=== PATIENT | male | born 1970 | race Hispanic/Latino ===

== ENCOUNTER 2018-04-21 15:34 | Emergency (ER) | payer OTHER ==
[2018-04-21] MEDS ORDERED: ONDANSETRON 4 MG/2 ML VIAL ONE (16:13)
[2018-04-21] MEDS ORDERED: MEPERIDINE HCL 50 MG/ML AMP ONE (16:13)
[2018-04-21] MEDS ORDERED: NA CHLORIDE 0.9% 1,000 ML ONE (16:14)
--- NOTE | 2018-04-21 16:21 | RAD REPORT ---
EXAM DESCRIPTION: CT - Stone Protocol - 04/21/2018 4:11 pm CLINICAL HISTORY: Flank pain. COMPARISON: None. TECHNIQUE: Axial images were obtained without oral or IV contrast. Lack of contrast limits solid org an and vascular assessment. The [id number] spans the entirety of the system partially obscuring uppermost abdomen and lung bases. Coronal reformatted images were obtained and reviewed. All CT scans are performed using dose optimization technique as appropriate and may include automated exposure control or mA/KV adjustment according to patient size. FINDINGS: The lower lung winters are clear. Imaged portions of the liver and spleen show no suspicious findings on non-contrast imaging. The panc reas and adrenal glands are normal. No pathologic lymphadenopathy in the abdomen or pelvis. A 2-3 mm calculus is present at the right UVJ resulting in mild right hydronephrosis. Additional bila teral renal stones are present, including a 8 mm stone in the superior right kidney in several stones in the superior left kidney, largest measuring 7 mm. No bowel obstruction, free air, free fluid or abscess. Normal appendix noted. No significant bony abnormality. IMPRESSION: 2-3 mm calculus at the right UVJ resulting in mild right hydronephrosis.
[2018-04-21 16:44] LABS: Absolute Lymphocytes (CBC) 1.3 K/uL (0.7-4.9); Absolute Monocytes 0.5 K/uL (0.1-1.3); Absolute Neutrophil 5.3 K/uL (1.8-8.0); Basophils % 0.7 % (0-1.3); Eosinophils % 1.3 % (0-4.4); Hematocrit 41.7 % (39.6-49.0); Lymphocytes % 17.9 % (15.3-44.8); MCH 28.5 pg (27.0-35.0); MCV 87.4 fL (80-100); MPV 12.2 fL (7.6-11.3); Monocytes % 7.5 % (3.3-12.3); RBC Red Blood Cell Count 4.77 M/uL (4.33-5.43)
[2018-04-21] MEDS ORDERED: TAMSULOSIN 0.4 MG SR CAP ONE (16:47)
[2018-04-21] MEDS ORDERED: KETOROLAC 30 MG/ML INJ ONE (16:47)
[2018-04-21 17:04] LABS: Urine Blood TRACE (NEG); Urine Glucose NEGATIVE (NEG); Urine Protein NEGATIVE (NEG); Urine pH 5.5 (5.0-7.0)
[2018-04-21 17:07] LABS: Potassium 3.9 mEq/L (3.6-5.0)
[2018-04-21 17:10] LABS: Urine Bacteria <20 /HPF (NONE SEEN); Urine Culture Reflex Order NOT NEEDED; Urine RBC <5 /HPF (NONE SEEN)
[2018-04-21 17:13] LABS: Albumin 4.7 g/dL (3.2-5.5); Bilirubin Direct 0.1 mg/dL (0-0.2); Bilirubin Total 0.6 mg/dL (0.3-1.2); Protein, Total 7.8 g/dL (6.0-8.3)
[2018-04-21] MEDS ORDERED: MORPHINE 4 MG/ML SYR ONE (17:44)
--- NOTE | 2018-04-21 18:22 | EDPHYS ---
Physician Documentation [facility] Name: Timbo Lara Jr Age: 47 yrs Sex: Male : 1970 Arrival Date: 04/21/2018 Time: 15:37 Bed 20 Private MD: Shelia Dominguez H ED Physician Luis Carlos Pollard HPI: 04/21 17:06 This 47 yrs old Male presents to ER via Ambulatory with complaints of rn Abdominal Pain. 17:06 The patient complains of pain in the right low back. The pain radiates to the abdomen. rn Onset: The symptoms/episode began/occurred just prior to arrival. Severity of pain: At its worst the pain was moderate in the emergency department the pain is unchanged. The patient has not experienced similar symptoms in the past. The patient has not recently seen a physician. Historical: - Allergies: 15:43 No Known Allergies; aj - Home Meds: 15:43 fenofibric acid oral oral [Active]; aj - PMHx: 15:43 Hyperlipidemia; aj - PSHx: 15:43 None; aj - Immunization history:: Adult Immunizations up to date. - Social history:: Smoking status: Patient/guardian denies using tobacco. - Ebola Screening: : Patient negative for fever greater than or equal to 101.5 degrees Fahrenheit, and additional compatible Ebola Virus Disease symptoms Patient denies exposure to infectious person Patient denies travel to an Ebola-affected area in the 21 days before illness onset. - Family history:: not pertinent. - Hospitalizations: : No recent hospitalization is reported. ROS: 17:06 Constitutional: Negative for fever, chills, and weight loss, Neck: Negative for injury, rn pain, and swelling, Cardiovascular: Negative for chest pain, palpitations, and edema, Respiratory: Negative for shortness of breath, cough, wheezing, and pleuritic chest pain, Abdomen/GI: Negative for vomiting, diarrhea, and constipation, Back: Negative for injury and pain, : Negative for injury, bleeding, discharge, and swelling, MS/Extremity: Negative for injury and deformity, Neuro: Negative for headache, weakness, numbness, tingling, and seizure. Exam: 17:06 Constitutional: This is a well developed, well nourished patient who is awake, alert, rn appears uncomfortable, pacing Abdomen/GI: Soft, non-tender, with normal bowel sounds. No distension or tympany. No guarding or rebound. No evidence of tenderness throughout. Back: No spinal tenderness. No costovertebral tenderness. Full range of motion. MS/ Extremity: Pulses equal, no cyanosis. Neurovascular intact. Full, normal range of motion. Equal circumference. Neuro: Awake and alert, GCS 15, oriented to person, place, time, and situation. Cranial nerves II-XII grossly intact. Motor strength 5/5 in all extremities. Sensory grossly intact. Cerebellar exam normal. Normal gait. Vital Signs: 15:43 BP 163 / 109; Pulse 86; Resp 16; Temp 97.2; Pulse Ox 97% on R/A; Weight 78.02 kg; aj Height 5 ft. 10 in. (177.80 cm); Pain 6/10; 16:30 BP 156 / 86; Pulse 80; Resp 16; Pulse Ox 100% ; hb 17:46 BP 146 / 84; Pulse 80; Resp 17; Pulse Ox 100% ; Pain 8/10; hb 18:16 BP 135 / 84; Pulse 69; Resp 15; Pulse Ox 100% on R/A; Pain 3/10; hb 15:43 Body Mass Index 24.68 (78.02 kg, 177.80 cm) aj MDM: 15:52 Patient medically screened. rn 18:20 Differential diagnosis: nephrolithiasis. 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 Counseling: I had a detailed discussion with the patient and/or guardian regarding: the historical points, exam findings, and any diagnostic results supporting the discharge/admit diagnosis, lab results, radiology results, the need for outpatient follow up, to return to the emergency department if symptoms worsen or persist or if there are any questions or concerns that arise at home. Response to treatment: the patient's symptoms have markedly improved after treatment, and as a result, I will discharge patient. Special discussion: I discussed with the patient/guardian in detail that at this point there is no indication for admission to the hospital. It is understood, however, that if the symptoms persist or worsen the patient needs to return immediately for re-evaluation. Based on the history and exam findings, there is no indication for further emergent testing or inpatient evaluation. I discussed with the patient/guardian the need to see the urologist for further evaluation of the symptoms. 04/21 16:02 Order name: Basic Metabolic Panel; Complete Time: 18:23 rn 04/21 16:02 Order name: CBC with Diff; Complete Time: 16:56 rn 04/21 16:02 Order name: Creatinine for Radiology; Complete Time: 16:56 rn 04/21 16:02 Order name: Hepatic Function; Complete Time: 18:23 rn 04/21 16:02 Order name: Lipase; Complete Time: 18:23 rn 04/21 16:02 Order name: Urine Microscopic Only; Complete Time: 17:48 rn 04/21 16:02 Order name: CT Stone Protocol; Complete Time: 16:39 rn 04/21 17:00 Order name: Urine Dipstick--Ancillary (enter results); Complete Time: 17:48 aa5 04/21 16:02 Order name: IV Saline Lock; Complete Time: 16:36 rn 04/21 16:02 Order name: Labs collected and sent; Complete Time: 16:36 rn 04/21 16:02 Order name: Urine Dipstick-Ancillary (obtain specimen); Complete Time: 16:36 rn Administered Medications: 16:35 Drug: Demerol 50 mg Route: IVP; Site: right antecubital; hb 17:00 Follow up: Response: No adverse reaction; Pain is decreased hb 16:35 Drug: Zofran 4 mg Route: IVP; Site: right antecubital; hb 17:00 Follow up: Response: No adverse reaction hb 16:36 Drug: NS 0.9% 1000 ml Route: IV; Rate: 1000 ml; Site: right antecubital; hb 17:30 Follow up: Response: No adverse reaction; IV Status: Completed infusion hb 16:59 Drug: TORadol 30 mg Route: IVP; Site: right antecubital; hb 17:30 Follow up: Response: No adverse reaction; Pain is decreased hb 17:00 Drug: Flomax 0.4 mg Route: PO; hb 17:30 Follow up: Response: No adverse reaction hb 17:46 Drug: morphine 4 mg Route: IVP; Site: right antecubital; hb 18:12 Follow up: Response: No adverse reaction; Pain is decreased hb Disposition: 04/21/18 18:21 Discharged to Home. Impression: Ureterolithiasis. - Condition is Stable. - Discharge Instructions: Kidney Stones. - Prescriptions for Ibuprofen 800 mg Oral Tablet - take 1 tablet by ORAL route every 8 hours As needed take with food; 30 tablet. Tylenol- Codeine #3 300-30 mg Oral Tablet - take 2 tablet by ORAL route every 6 hours As needed; 20 tablet. Zofran 4 mg Oral Tablet - take 1 tablet by ORAL route every 12 hours As needed; 20 tablet. Flomax 0.4 mg Oral Capsule, Sust. Release 24 hr - take 1 capsule by ORAL route once daily 1/2 hour following the same meal each day; 5 capsule. - Medication Reconciliation Form, Thank You Letter, Antibiotic Education, Prescription Opioid Use form. - Follow up: Ganesh Sheehan; When: As needed; Reason: Recheck today's complaints, Re-evaluation by your physician. - Problem is new. - Symptoms have improved. Signatures: Dispatcher [employer] Rosy Zheng RN RN aj Nieto, Roman, MD MD rn Baxter, Heather, RN RN hb Corrections: (The following items were deleted from the chart) 18:51 18:21 04/21/2018 18:21 Discharged to Home. Impression: Ureterolithiasis. Condition is hb Stable. Discharge Instructions: Kidney Stones. Prescriptions for Ibuprofen 800 mg Oral Tablet - take 1 tablet by ORAL route every 8 hours As needed take with food; 30 tablet, Tylenol-Codeine #3 300-30 mg Oral Tablet - take 2 tablet by ORAL route every 6 hours As needed; 20 tablet, Zofran 4 mg Oral Tablet - take 1 tablet by ORAL route every 12 hours As needed; 20 tablet, Flomax 0.4 mg Oral Capsule, Sust. Release 24 hr - take 1 capsule by ORAL route once daily 1/2 hour following the same meal each day; 5 capsule. and Forms are Medication Reconciliation Form, Thank You Letter, Antibiotic Education, Prescription Opioid Use. Follow up: Ganesh Sheehan; When: As needed; Reason: Recheck today's complaints, Re-evaluation by your physician. Problem is new. Symptoms have improved. rn
--- NOTE | 2018-04-21 18:22 | ER ---
Nurse's Notes [facility] Name: Timbo Lara Jr Age: 47 yrs Sex: Male : 1970 Arrival Date: 04/21/2018 Time: 15:37 Bed 20 Private MD: Shelia Dominguez H Diagnosis: Ureterolithiasis Presentation: 04/21 15:42 Presenting complaint: Patient states: RLQ pain that started suddenly. Reports nausea. aj Pain is worse with sitting. Also reports urinary urgency. Transition of care: patient was not received from another setting of care. Onset of symptoms was April 21, 2018. Care prior to arrival: None. 15:42 Method Of Arrival: Ambulatory aj 15:42 Acuity: DOMINIC 3 aj 16:33 Risk Assessment: Do you want to hurt yourself or someone else? Patient reports no hb desire to harm self or others. Initial Sepsis Screen: Does the patient meet any 2 criteria? No. Patient's initial sepsis screen is negative. Does the patient have a suspected source of infection? No. Patient's initial sepsis screen is negative. Triage Assessment: 15:43 General: Appears in no apparent distress. uncomfortable, Behavior is calm, cooperative, aj appropriate for age. Pain: Complains of pain in right lower quadrant. Neuro: Level of Consciousness is awake, alert, obeys commands, Oriented to person, place, time, situation, Appropriate for age. Respiratory: Airway is patent Respiratory effort is even, unlabored, Respiratory pattern is regular, symmetrical. GI: Abdomen is flat, non-distended, Reports lower abdominal pain. : Reports pain in right lower quadrant(s) urgency. Derm: Skin is intact, is healthy with good turgor, Skin is pink, warm \T\ dry. normal. Historical: - Allergies: 15:43 No Known Allergies; aj - Home Meds: 15:43 fenofibric acid oral oral [Active]; aj - PMHx: 15:43 Hyperlipidemia; aj - PSHx: 15:43 None; aj - Immunization history:: Adult Immunizations up to date. - Social history:: Smoking status: Patient/guardian denies using tobacco. - Ebola Screening: : Patient negative for fever greater than or equal to 101.5 degrees Fahrenheit, and additional compatible Ebola Virus Disease symptoms Patient denies exposure to infectious person Patient denies travel to an Ebola-affected area in the 21 days before illness onset. - Family history:: not pertinent. - Hospitalizations: : No recent hospitalization is reported. Screenin:32 Abuse screen: Denies threats or abuse. Denies injuries from another. Nutritional hb screening: No deficits noted. Tuberculosis screening: No symptoms or risk factors identified. Fall Risk None identified. Assessment: 16:00 General: Appears in no apparent distress. uncomfortable, Behavior is calm, cooperative. hb Pain: Pain currently is 8 out of 10 on a pain scale. Neuro: Level of Consciousness is awake, alert, obeys commands, Oriented to person, place, time, situation. Cardiovascular: Capillary refill < 3 seconds Patient's skin is warm and dry. Respiratory: Airway is patent Trachea midline Respiratory effort is even, unlabored, Respiratory pattern is regular, symmetrical, Breath sounds are clear bilaterally. GI: Abdomen is non-distended, Bowel sounds present X 4 quads. Abd is soft and non tender X 4 quads. Reports RLQ pain. : No signs and/or symptoms were reported regarding the genitourinary system. EENT: No signs and/or symptoms were reported regarding the EENT system. Derm: No signs and/or symptoms reported regarding the dermatologic system. Musculoskeletal: No signs and/or symptoms reported regarding the musculoskeletal system. 17:00 Reassessment: Patient appears in no apparent distress at this time. Patient and/or hb family updated on plan of care and expected duration. Pain level reassessed. Patient is alert, oriented x 3, equal unlabored respirations, skin warm/dry/pink. 17:46 Reassessment: Pt reports RLQ pain 8/10, Dr. Pollard notified at bedside, morphine 4 mg hb IVP administered as ordered. 18:14 Reassessment: Patient appears in no apparent distress at this time. Patient and/or hb family updated on plan of care and expected duration. Pain level reassessed. Patient is alert, oriented x 3, equal unlabored respirations, skin warm/dry/pink. Patient states symptoms have improved. Vital Signs: 15:43 BP 163 / 109; Pulse 86; Resp 16; Temp 97.2; Pulse Ox 97% on R/A; Weight 78.02 kg; aj Height 5 ft. 10 in. (177.80 cm); Pain 6/10; 16:30 BP 156 / 86; Pulse 80; Resp 16; Pulse Ox 100% ; hb 17:46 BP 146 / 84; Pulse 80; Resp 17; Pulse Ox 100% ; Pain 8/10; hb 18:16 BP 135 / 84; Pulse 69; Resp 15; Pulse Ox 100% on R/A; Pain 3/10; hb 15:43 Body Mass Index 24.68 (78.02 kg, 177.80 cm) aj ED Course: 15:37 Patient arrived in ED. sb2 15:37 Shelia Dominguez DO is Private Physician. sb2 15:43 Triage completed. aj 15:43 Arm band placed on right wrist. Patient placed in waiting room, Patient notified of aj wait time. 15:52 Luis Carlos Pollard MD is Attending Physician. rn 16:07 CT completed. Patient tolerated procedure well. Patient moved to CT via wheelchair. sw Patient moved back from CT. 16:10 Claritza Seay, CLAUDIA is Primary Nurse. hb 16:12 CT Stone Protocol In Process Unspecified. EDMS 16:15 Patient has correct armband on for positive identification. Bed in low position. Call hb light in reach. Side rails up X 1. 16:15 Inserted saline lock: 20 gauge in right antecubital area, using aseptic technique. hb Blood collected. 18:21 Ganesh Sheehan MD is Referral Physician. rn 18:30 No provider procedures requiring assistance completed. IV discontinued, intact, hb bleeding controlled, No redness/swelling at site. Pressure dressing applied. Administered Medications: 16:35 Drug: Demerol 50 mg Route: IVP; Site: right antecubital; hb 17:00 Follow up: Response: No adverse reaction; Pain is decreased hb 16:35 Drug: Zofran 4 mg Route: IVP; Site: right antecubital; hb 17:00 Follow up: Response: No adverse reaction hb 16:36 Drug: NS 0.9% 1000 ml Route: IV; Rate: 1000 ml; Site: right antecubital; hb 17:30 Follow up: Response: No adverse reaction; IV Status: Completed infusion hb 16:59 Drug: TORadol 30 mg Route: IVP; Site: right antecubital; hb 17:30 Follow up: Response: No adverse reaction; Pain is decreased hb 17:00 Drug: Flomax 0.4 mg Route: PO; hb 17:30 Follow up: Response: No adverse reaction hb 17:46 Drug: morphine 4 mg Route: IVP; Site: right antecubital; hb 18:12 Follow up: Response: No adverse reaction; Pain is decreased hb Outcome: 18:21 Discharge ordered by . rn 18:30 Discharged to home ambulatory, with family. hb 18:30 Condition: stable 18:30 Discharge instructions given to patient, family, Instructed on discharge instructions, follow up and referral plans. medication usage, Demonstrated understanding of instructions, follow-up care, medications, Prescriptions given X 4. 18:51 Patient left the ED. hb Signatures: Dispatcher [employer] EDRosy Morgan RN RN aj Nieto, Roman, MD MD rn Warren, Shannon sw Baxter, Heather, RN RN hb Billeau, Sheri sb2 Corrections: (The following items were deleted from the chart) 15:45 15:43 Arm band placed on right wrist. Patient placed in an exam room, beatrice barron
== END 2018-04-21 18:51 | disposition home or self-care (01) ==
LOC: ER 15:34
DX: N20.1 Calculus of ureter (principal); E78.5 Hyperlipidemia, unspecified
CPT/HCPCS: 36415; 74176; 76377; 80048; 80076; 81003; 81015; 83690; 85025; 96361; 96374; 96375; 99284; J2175; J2405; J7030

== ENCOUNTER 2018-09-01 05:34 | Day surgery (SDC) | payer OTHER ==
[2018-09-01] MEDS ORDERED: KETOROLAC 30 MG/ML INJ ONE ×2 (05:59→12:07)
[2018-09-01 06:08] LABS: Absolute Lymphocytes (CBC) 0.8 K/uL (0.7-4.9); Absolute Monocytes 0.5 K/uL (0.1-1.3); Absolute Neutrophil 10.3 K/uL (1.8-8.0); Basophils % 0.4 % (0-1.3); Hematocrit 41.6 % (39.6-49.0); Lymphocytes % 6.8 % (15.3-44.8); MCH 29.7 pg (27.0-35.0); MCV 86.5 fL (80-100); MPV 12.4 fL (7.6-11.3); Monocytes % 4.1 % (3.3-12.3); RBC Red Blood Cell Count 4.81 M/uL (4.33-5.43)
[2018-09-01 06:21] LABS: Urine Bacteria 20-50 /HPF (NONE SEEN); Urine Culture Reflex Order REFLEXED; Urine RBC 20-50 /HPF (NONE SEEN)
[2018-09-01 06:29] LABS: Albumin 4.6 g/dL (3.4-5.0); Bilirubin Direct 0.1 mg/dL (0-0.2); Bilirubin Total 0.3 mg/dL (0.2-1.0); Potassium 3.7 mmol/L (3.5-5.1); Protein, Total 8.3 g/dL (6.4-8.2)
[2018-09-01 06:33] LABS: Urine Blood 2+ (NEG); Urine Glucose NEGATIVE (NEG); Urine Protein 1+ (NEG); Urine Specific Gravity 1.015 (1.005-1.030)
[2018-09-01] MEDS ORDERED: FENTANYL CITR 100 MCG/2 ML ONE ×3 (07:17→12:08)
[2018-09-01] MEDS ORDERED: NA CHLORIDE 0.9% 100 ML IV ONE (07:18)
[2018-09-01] MEDS ORDERED: CEFTRIAXONE 1000 MG/VIAL ONE (07:18)
--- NOTE | 2018-09-01 07:20 | ER ---
Nurse's Notes [facility] Name: Timbo Lara Jr Age: 47 yrs Sex: Male : 1970 Arrival Date: 09/01/2018 Time: 05:34 Bed 16 Private MD: Diagnosis: Acute right flank pain;right ureteral stones with severe hydronephrosis s/p lithotripsy Presentation: 09/01 05:43 Presenting complaint: Patient states: "I had a kidney stone blasted with Dr. Sheehan jlenora yesterday and I'm taking my pain medications, but it just keeps hurting worse and worse.". Transition of care: patient was not received from another setting of care. Onset of symptoms was September 01, 2018. Risk Assessment: Do you want to hurt yourself or someone else? Patient reports no desire to harm self or others. Initial Sepsis Screen: Does the patient meet any 2 criteria? No. Patient's initial sepsis screen is negative. Does the patient have a suspected source of infection? No. Patient's initial sepsis screen is negative. Care prior to arrival: None. 05:43 Method Of Arrival: Ambulatory jd3 05:43 Acuity: DOMINIC 3 jd3 Historical: - Allergies: 05:46 No Known Allergies; jd3 - Home Meds: 05:46 fenofibric acid Oral [Active]; jd3 - PMHx: 05:46 Hyperlipidemia; jd3 - PSHx: 05:50 Lithotripsy; jd3 - Immunization history:: Adult Immunizations up to date. - Social history:: Smoking status: Patient/guardian denies using tobacco. - Ebola Screening: : Patient negative for fever greater than or equal to 101.5 degrees Fahrenheit, and additional compatible Ebola Virus Disease symptoms. - Family history:: not pertinent. - Hospitalizations: : No recent hospitalization is reported. Screenin:50 Abuse screen: Denies threats or abuse. Nutritional screening: No deficits noted. jd3 Tuberculosis screening: No symptoms or risk factors identified. Fall Risk Ambulatory Aid- None/Bed Rest/Nurse Assist (0 pts). Gait- Normal/Bed Rest/Wheelchair (0 pts) Mental Status- Oriented to own ability (0 pts). Total Snell Fall Scale indicates No Risk (0-24 pts). Assessment: 05:47 General: Appears comfortable, Behavior is cooperative, appropriate for age, anxious, jd3 Reports recent lithotripsy. Pain: Complains of pain in abdomen Pain currently is 10 out of 10 on a pain scale. Quality of pain is described as sharp, Also complains of nausea. Neuro: Level of Consciousness is awake, alert, obeys commands, Oriented to person, place, time, situation. Cardiovascular: Capillary refill < 3 seconds Patient's skin is warm and dry. Respiratory: Airway is patent Respiratory effort is even, unlabored, Respiratory pattern is regular, symmetrical. GI: Abdomen is round non-distended, Reports nausea, vomiting. : No signs and/or symptoms were reported regarding the genitourinary system. EENT: No signs and/or symptoms were reported regarding the EENT system. Derm: Skin is intact, Skin is dry, Skin is normal, Skin temperature is warm. Musculoskeletal: Circulation, motion, and sensation intact. Range of motion: intact in all extremities. 06:11 Reassessment: Patient appears in no apparent distress at this time. Patient and/or jd3 family updated on plan of care and expected duration. Pain level reassessed. Patient is alert, oriented x 3, equal unlabored respirations, skin warm/dry/pink. 06:59 Reassessment: RECD REPORT FROM LAURO TAYLOR. 47YO HM P/W FLANK PAIN AND N/V S/P bp LITHOTRIPSY Y/D. ALL CURRENT STUDIES COMPLETED, CT RESULTS PENDING FOR DISPO. VS STABLE ON MONITOR AT THIS TIME. 07:18 Reassessment: AFTER C/S WITH DR SHEEHAN, PT TO REMAIN IN ER FOR DIRECT TO OR ADMIT FOR bp RENAL STENT PLACEMENT. 07:45 Reassessment: PT TO XRAY WITH [email or web address]. bp 09:00 Reassessment: PT RESTING QUIETLY, VS STABLE, AWAITING OR TRANSPORT. bp 10:15 Reassessment: PT SECURITY NURSE FOR OR, TRANSPORT PENDING. bp 10:49 Reassessment: PT TO OR WITH CLARISSE HUGHES RN. bp Vital Signs: 05:46 BP 154 / 100; Pulse 110; Resp 19 S; Temp 98.6(O); Pulse Ox 97% on R/A; Weight 80.74 kg j (R); Height 5 ft. 11 in. (180.34 cm) (R); Pain 10/10; 06:11 BP 149 / 89; Pulse 105; Resp 16 S; Pulse Ox 96% on R/A; jd3 07:00 BP 141 / 90; Pulse 98; Resp 16; Pulse Ox 96% on R/A; bp 08:00 BP 143 / 93; Pulse 100; Resp 16; Pulse Ox 98% ; bp 09:00 BP 136 / 90; Pulse 96; Resp 14; Pulse Ox 96% ; bp 10:15 BP 141 / 87; Pulse 89; Resp 14; Pulse Ox 100% ; bp 10:49 BP 142 / 89; Pulse 92; Resp 14; Pulse Ox 100% ; bp 05:46 Body Mass Index 24.83 (80.74 kg, 180.34 cm) jd3 ED Course: 05:34 Patient arrived in ED. ds1 05:36 Lauro Anthony RN is Primary Nurse. jd3 05:38 Taiwo Summers MD is Attending Physician. wa 05:45 Triage completed. jd3 05:46 Arm band placed on. jd3 05:51 Patient has correct armband on for positive identification. Bed in low position. Call jd3 light in reach. Side rails up X 1. Adult w/ patient. 06:00 Inserted saline lock: 20 gauge in left antecubital area, using aseptic technique. Blood jd3 collected. placed by Omaira TAYLOR. 06:05 CT Stone Protocol In Process Unspecified. EDMS 06:43 CT completed. Patient tolerated procedure well. Patient moved to CT via wheelchair. Patient moved back from CT. 06:59 Primary Nurse role handed off by Lauro Anthony RN bp 06:59 Ronny Vera, CLAUDIA is Primary Nurse. bp 07:18 Ganesh Sheehan MD is Hospitalizing Provider. wa 08:01 X-ray completed. Patient tolerated procedure well. Patient moved back from radiology. kw 09:20 No provider procedures requiring assistance completed. Patient admitted, IV remains in bp place. Administered Medications: 06:02 Drug: TORadol 30 mg Route: IVP; Site: left antecubital; jd3 07:17 Follow up: Response: No adverse reaction; Pain is decreased bp 07:17 Drug: fentaNYL (PF) 75 mcg Route: IVP; Site: left antecubital; bp 07:45 Follow up: Response: Pain is decreased bp 07:18 Drug: Rocephin - (cefTRIAXone) 1 grams Route: IVPB; Infused Over: 30 mins; Site: left bp antecubital; 08:00 Follow up: IV Status: Completed infusion; IV Intake: 100ml bp Intake: 08:00 IV: 100ml; Total: 100ml. bp Outcome: 07:19 Decision to Hospitalize by Provider. oh 10:50 Admitted to OR accompanied by nurse, family with patient, via stretcher, with chart, bp Report called to CLARISSE HUGHES RN 10:50 Condition: stable 10:50 Instructed on the need for admit. 10:51 Patient left the ED. bp Signatures: Dispatcher [employer] EDMS Jesse Neumann Demi ds1 Sera Choe William, MD MD wa Davies, Jonathon, RN RN Ronny Ray RN RN bp Corrections: (The following items were deleted from the chart) 05:50 05:46 PSHx: None; tyler scott
--- NOTE | 2018-09-01 07:20 | EDPHYS ---
Physician Documentation [facility] Name: Timbo Lara Jr Age: 47 yrs Sex: Male : 1970 Arrival Date: 09/01/2018 Time: 05:34 Bed 16 Private MD: ED Physician Taiwo Summers HPI: 09/01 06:08 This 47 yrs old Male presents to ER via Ambulatory with complaints of Pelvic wa Pain. 06:08 The patient complains of pain in the right flank. The pain radiates to the R lower wa abdomen. Onset: The symptoms/episode began/occurred yesterday. Modifying factors: The symptoms are alleviated by nothing. the symptoms are aggravated by nothing. Associated signs and symptoms: Pertinent negatives: dysuria, fever, urinary frequency, hematuria. Severity of pain: At its worst the pain was moderate in the emergency department the pain is actually worse. The patient has experienced similar episodes in the past. The patient has been recently seen by a physician: had lithotripsy. Historical: - Allergies: 05:46 No Known Allergies; jd3 - Home Meds: 05:46 fenofibric acid Oral [Active]; jd3 - PMHx: 05:46 Hyperlipidemia; jd3 - PSHx: 05:50 Lithotripsy; jd3 - Immunization history:: Adult Immunizations up to date. - Social history:: Smoking status: Patient/guardian denies using tobacco. - Ebola Screening: : Patient negative for fever greater than or equal to 101.5 degrees Fahrenheit, and additional compatible Ebola Virus Disease symptoms. - Family history:: not pertinent. - Hospitalizations: : No recent hospitalization is reported. ROS: 06:14 Constitutional: Negative for fever, chills, and weight loss, Eyes: Negative for injury, wa pain, redness, and discharge, ENT: Negative for injury, pain, and discharge, Neck: Negative for injury, pain, and swelling, Cardiovascular: Negative for chest pain, palpitations, and edema, Respiratory: Negative for shortness of breath, cough, wheezing, and pleuritic chest pain, Abdomen/GI: Negative for abdominal pain, nausea, vomiting, diarrhea, and constipation, Back: Negative for injury and pain, MS/Extremity: Negative for injury and deformity, Skin: Negative for injury, rash, and discoloration, Neuro: Negative for headache, weakness, numbness, tingling, and seizure, Psych: Negative for depression, anxiety, suicide ideation, homicidal ideation, and hallucinations. 06:14 : Positive for flank pain. Exam: 06:15 Constitutional: This is a well developed, well nourished patient who is awake, alert, wa and in no acute distress. Head/Face: Normocephalic, atraumatic. Eyes: Pupils equal round and reactive to light, extra-ocular motions intact. Lids and lashes normal. Conjunctiva and sclera are non-icteric and not injected. Cornea within normal limits. Periorbital areas with no swelling, redness, or edema. ENT: Nares patent. No nasal discharge, no septal abnormalities noted. Tympanic membranes are normal and external auditory canals are clear. Oropharynx with no redness, swelling, or masses, exudates, or evidence of obstruction, uvula midline. Mucous membranes moist. Neck: Trachea midline, no thyromegaly or masses palpated, and no cervical lymphadenopathy. Supple, full range of motion without nuchal rigidity, or vertebral point tenderness. No Meningismus. Chest/axilla: Normal chest wall appearance and motion. Nontender with no deformity. No lesions are appreciated. Cardiovascular: Regular rate and rhythm with a normal S1 and S2. No gallops, murmurs, or rubs. Normal PMI, no JVD. No pulse deficits. Respiratory: Lungs have equal breath sounds bilaterally, clear to auscultation and percussion. No rales, rhonchi or wheezes noted. No increased work of breathing, no retractions or nasal flaring. Skin: Warm, dry with normal turgor. Normal color with no rashes, no lesions, and no evidence of cellulitis. MS/ Extremity: Pulses equal, no cyanosis. Neurovascular intact. Full, normal range of motion. Neuro: Awake and alert, GCS 15, oriented to person, place, time, and situation. Cranial nerves II-XII grossly intact. Motor strength 5/5 in all extremities. Sensory grossly intact. Cerebellar exam normal. Normal gait. 06:15 Abdomen/GI: Inspection: abdomen appears normal, Bowel sounds: normal, in all quadrants, Palpation: abdomen is soft and non-tender. 06:15 Back: pain, is absent, CVA tenderness, is absent. wa Vital Signs: 05:46 BP 154 / 100; Pulse 110; Resp 19 S; Temp 98.6(O); Pulse Ox 97% on R/A; Weight 80.74 kg jd3 (R); Height 5 ft. 11 in. (180.34 cm) (R); Pain 10/10; 06:11 BP 149 / 89; Pulse 105; Resp 16 S; Pulse Ox 96% on R/A; jd3 07:00 BP 141 / 90; Pulse 98; Resp 16; Pulse Ox 96% on R/A; bp 08:00 BP 143 / 93; Pulse 100; Resp 16; Pulse Ox 98% ; bp 09:00 BP 136 / 90; Pulse 96; Resp 14; Pulse Ox 96% ; bp 10:15 BP 141 / 87; Pulse 89; Resp 14; Pulse Ox 100% ; bp 10:49 BP 142 / 89; Pulse 92; Resp 14; Pulse Ox 100% ; bp 05:46 Body Mass Index 24.83 (80.74 kg, 180.34 cm) jd3 MDM: 05:39 Patient medically screened. wa 06:15 Differential diagnosis: r/o worsening obstruction. Data reviewed: vital signs, nurses wa notes. 07:15 Test interpretation: by ED physician or midlevel provider: labs noted for mild renal wa insuff. 07:16 Test interpretation: by ED physician or midlevel provider: CT: severe R side wa hydronephrosis secondary to multiple stones in R ureter. Response to treatment: the patient's symptoms have mildly improved after treatment. Physician consultation: Ganesh Sheehan MD. Admission orders: after a detailed discussion of the patient's condition and case, the admit orders are written by me. ED course: consulted jared. advised keep NPO. will take to day surgery for stent. 09/01 05:48 Order name: Basic Metabolic Panel; Complete Time: 07:05 wa 09/01 05:48 Order name: CBC with Diff ne 09/01 05:48 Order name: Hepatic Function; Complete Time: 07:05 wa 09/01 05:48 Order name: Urine Microscopic Only; Complete Time: 07:05 ne 09/01 06:06 Order name: Urine Dipstick--Ancillary (enter results); Complete Time: 07:05 mw2 09/01 06:10 Order name: CBC Smear Scan EDMS 09/01 05:48 Order name: IV Saline Lock; Complete Time: 06:02 wa 09/01 05:48 Order name: Labs collected and sent; Complete Time: 06:02 ne 09/01 05:49 Order name: CT Stone Protocol ne 09/01 07:09 Order name: XRAY Abdomen 1 View (KUB) ne 09/01 09:12 Order name: RAD EDND 09/01 05:48 Order name: Urine Dipstick-Ancillary (obtain specimen); Complete Time: 06:02 ne Administered Medications: 06:02 Drug: TORadol 30 mg Route: IVP; Site: left antecubital; jd3 07:17 Follow up: Response: No adverse reaction; Pain is decreased bp 07:17 Drug: fentaNYL (PF) 75 mcg Route: IVP; Site: left antecubital; bp 07:45 Follow up: Response: Pain is decreased bp 07:18 Drug: Rocephin - (cefTRIAXone) 1 grams Route: IVPB; Infused Over: 30 mins; Site: left bp antecubital; 08:00 Follow up: IV Status: Completed infusion; IV Intake: 100ml bp Disposition: 09/01/18 07:19 Hospitalization ordered by Ganesh Sheehan for Observation. Preliminary diagnosis are Acute right flank pain, right ureteral stones with severe hydronephrosis s/p lithotripsy. - Bed requested for DAY SURGERY OTHER. - Status is Observation. bp - Condition is Stable. - Problem is new. - Symptoms have improved. UTI on Admission? Yes Signatures: Dispatcher [employer] EDND Taiwo Summers MD MD wa Davies, Jonathon, RN RN jd3 Peltier, Brian, RN RN bp Corrections: (The following items were deleted from the chart) 05:50 05:46 PSHx: None; jd3 jd3 10:51 07:19 Hospitalization Ordered by Ganesh Sheehan MD for Observation. Preliminary bp diagnosis is Acute right flank pain; right ureteral stones with severe hydronephrosis s/p lithotripsy. Bed requested for DAY SURGERY OTHER. Status is Observation. Condition is Stable. Problem is new. Symptoms have improved. UTI on Admission? Yes. ne
--- NOTE | 2018-09-01 09:04 | RAD REPORT ---
EXAM DESCRIPTION: CT - Stone Protocol - 09/01/2018 7:22 am CLINICAL HISTORY: Abdominal pain, right flank pain, prior day lithotripsy for right-sided stone A preliminary report was provided at the time of the study and reviewed prior to final report. COMPARISON: CT examination August 30 TECHNIQUE: Axial 5 mm thick images were obtained without oral or IV contrast. The [id number] span s the entirety of the system including uppermost abdomen and lung bases. All CT scans are performed using dose optimization technique as appropriate and may include automated exposure control or mA/KV adjustment according to patient size. FINDINGS: Mild hydronephrosis of the right-sided collecting system is present. The right pelvic calc ification seen on the prior CT study has been fragmented. There are not numerous small stone fragment s in the right renal pelvis. There is a cluster of 4 or 5 stone fragments 2 mm in size in the proxima l right ureter at the level of the L3 transverse process. There are 3 mid ureter stone fragments 3-5 mm in size superimposed on the right L4 transverse process. An additional 3 mm calcification is prese nt in the right mid ureter at the level of the L5 transverse process. More distally the ureter is dec ompressed and clear of calculi. No bladder calculi. No suspicious renal masses. Isodense masses and p yelonephritis are not excluded on a stone protocol CT scan. No urinary bladder suspicious finding. Ri ght-sided perinephric stranding is present. No left-sided hydronephrosis. Nonobstructing caliceal izzy culi on the left have not changed. Imaged portions of the liver, spleen and pancreas show no suspicious findings on non-contrast imaging . Fatty infiltration pattern is still present. No acute gallbladder or biliary tree finding. No signi ficant adrenal finding. No suspicious bowel findings. No mass or bulky lymphadenopathy. Small fat filled left inguinal hernia has not changed. No free air or pneumatosis. No significant bony abnormality. IMPRESSION: The 12 millimeter right renal pelvic calcification has been fragmented. There are roly us stone fragments in the right renal pelvis and numerous stone fragments along the course of the rig ht ureter down to the L5 level. Mild right-sided hydronephrosis of the pelvis, calices and proximal right ureter. Isodense masses and pyelonephritis are not excluded on stone protocol technique.
[2018-09-01 09:09] LABS: Blood Morphology Comment NOT SEEN (NOT SEEN); Platelet Estimate ADEQ; Urine White Blood Cell Casts OK
--- NOTE | 2018-09-01 09:12 | RAD REPORT ---
EXAM DESCRIPTION: RAD - Abdomen 1 View (KUB) - 09/01/2018 8:03 am CLINICAL HISTORY: Right-sided pain, recent lithotripsy COMPARISON: KUB August 30, CT study September 01 FINDINGS: Multiple punctate stones are present from fragmentation of the 12 millimeter right renal p lorne calcification. There are multiple stone fragments clustered in the pelvis and several clustered in the lower pole of the right kidney. Clusters of stone fragments are seen near the L3 transverse p rocess and L4 transverse process. These match the proximal ureter stones. A small stone reaches as fa r as the L5 transverse process on the CT study. This stone is not clearly seen on the KUB projection. No bladder calculi. IMPRESSION: The previously detailed 12 mm right renal pelvic calcification has been fragmented into multiple tiny stones now clustered in the right renal pelvis, lower pole right kidney and in the prox imal right ureter.
[2018-09-01] MEDS ORDERED: GENTAMICIN 100 MG/100 ML BAG 100 MG/100 ML BAG IV ONE (11:02)
[2018-09-01] MEDS ORDERED: Ringers Lactate 1,000 ML IV ONE (11:02)
[2018-09-01] MEDS ORDERED: LIDOCAINE 2% MPF 5 ML VIAL ONE (11:32)
[2018-09-01] MEDS ORDERED: PROPOFOL 200 MG/20 ML VIAL IV ONE (11:32)
[2018-09-01] MEDS ORDERED: MIDAZOLAM HCL 2 MG/2 ML INJ ONE (11:32)
[2018-09-01] MEDS ORDERED: ONDANSETRON HCL 40 MG/20 ML VIAL ONE (12:07)
[2018-09-01] MEDS ORDERED: Mastisol Adhesive Liq ONE (12:11)
[2018-09-01] MEDS: MEPERIDINE HCL 50 MG/ML AMP ONE ×2 (12:51→12:57)
--- NOTE | 2018-09-01 13:20 | RAD REPORT ---
EXAM DESCRIPTION: RAD - Urethrocystogrphy Retrograde - 09/01/2018 12:17 pm CLINICAL HISTORY: Lithotripsy with multiple pelvic an ureteral stone fragments on the right, placeme nt of a right ureteral stent. COMPARISON: KUB September 01, 2018, CT study September 01, 2018. FINDINGS: Ten images were captured during fluoroscopic assisted placement of a right ureteral stent. Imaging shows the stent in good position. The known ureteral and renal pelvic calcifications are not well visualized on the fluoroscopic images. Fluoro time was 30 seconds IMPRESSION: Fluoroscopic assisted placement of a right ureteral stent as detailed.
[2018-09-01] MEDS ORDERED: HYDROCODONE/APAP 7.5/325 MG TAB ONE (14:04)
== END 2018-09-01 14:45 | disposition home or self-care (01) ==
LOC: ER 05:34 → OR 07:43
PROVIDERS: ATTEND Urology
PROC: 0TF3XZZ Fragmentation in Right Kidney Pelvis, External Approach (ICD-10-PCS; principal; 2018-09-01 11:30)
DX: N20.2 Calculus of kidney with calculus of ureter (principal); Q62.39 Other obstructive defects of renal pelvis and ureter; E78.5 Hyperlipidemia, unspecified; Z83.3 Family history of diabetes mellitus
CPT/HCPCS: 36415; 51610; 74018; 74176; 74450; 76377; 80048; 80076; 81003; 81015; 85025; 96365; 96375; 99285; J1580; J2175; J2250; J2405; J3010; Q9967

== ENCOUNTER 2018-09-14 09:24 | Day surgery (SDC) | payer OTHER ==
[2018-09-13 13:35] LABS: Absolute Lymphocytes (CBC) 1.7 K/uL (0.7-4.9); Absolute Monocytes 0.5 K/uL (0.1-1.3); Basophils % 1.3 % (0-1.3); Eosinophils % 1.2 % (0-4.4); Hematocrit 45.1 % (39.6-49.0); Lymphocytes % 16.4 % (15.3-44.8); MCH 29.4 pg (27.0-35.0); MCV 87.2 fL (80-100); MPV 12.1 fL (7.6-11.3); RBC Red Blood Cell Count 5.17 M/uL (4.33-5.43)
[2018-09-13 13:45] LABS: Protime INR 0.97
[2018-09-13 13:46] LABS: Urine Appearance TURBID; Urine Blood 3+ (NEG); Urine Color RED; Urine Glucose NEGATIVE (NEG); Urine Protein 2+ (NEG); Urine Urobilinogen 0.2 mg/dL (0.2-1.0); Urine pH 5.5 (5.0-7.0)
[2018-09-13 13:47] LABS: Potassium 3.8 mmol/L (3.5-5.1)
[2018-09-13 14:00] LABS: Urine Bilirubin NEGATIVE (NEG)
--- NOTE | 2018-09-13 14:00 | RAD REPORT ---
EXAM DESCRIPTION: RAD - Chest Pa And Lat (2 Views) - 09/13/2018 1:48 pm CLINICAL HISTORY: Preop for surgery Chest pain. COMPARISON: Abdomen 1 View (KUB) dated 09/13/2018; Abdomen 1 View (KUB) dated 09/01/2018; Chest Pa An d Lat (2 Views) dated 08/30/2018; Abdomen 1 View (KUB) dated 08/30/2018 FINDINGS: The lungs are clear. The heart is normal in size. No displaced fractures. IMPRESSION: No acute or concerning finding suspected.
[2018-09-13 14:01] LABS: Urine Microscopic Reflex ORDER UMIC
[2018-09-13 14:02] LABS: Urine Bacteria 20-50 /HPF (NONE SEEN); Urine Culture Reflex Order NOT NEEDED; Urine RBC TNTC /HPF (NONE SEEN)
--- NOTE | 2018-09-13 15:45 | EKG ---
Test Date: 2018-09-13 Test Time: 13:36:51 Potter [employer] Cer[employer] Artist: MICHELLE MEASUREMENT RESULTS: Intervals: Rate: 85 MI: 182 QRSD: 86 QT: 342 QTc: 406 Maxwell: P: 42 MI: 182 QRS: 20 T: 20 INTERPRETIVE STATEMENTS: Normal sinus rhythm Minimal voltage criteria for LVH, may be normal variant Borderline ECG Compared to ECG 08/30/2018 12:39:54 Left ventricular hypertrophy now present ST (T wave) deviation no longer present Electronically Signed On 09-13-18 15:44:36 CDT by Jarad Gonzalez
[2018-09-14] MEDS ORDERED: Ringers Lactate 0 ML IV ONE (09:56)
[2018-09-14] MEDS ORDERED: GENTAMICIN 100 MG/100 ML BAG 100 MG/100 ML BAG IV ONE (09:57)
[2018-09-14] MEDS ORDERED: Ringers Lactate 1,000 ML IV ONE (10:00)
[2018-09-14] MEDS ORDERED: PROPOFOL 200 MG/20 ML VIAL IV ONE (10:46)
[2018-09-14] MEDS ORDERED: FENTANYL CITR 100 MCG/2 ML ONE (10:46)
[2018-09-14] MEDS ORDERED: MIDAZOLAM HCL 2 MG/2 ML INJ ONE (10:47)
[2018-09-14] MEDS ORDERED: LIDOCAINE 2% MPF 5 ML VIAL ONE (10:47)
[2018-09-14] MEDS ORDERED: ONDANSETRON HCL 40 MG/20 ML VIAL ONE (10:49)
--- NOTE | 2018-09-14 12:08 | RAD REPORT ---
EXAM DESCRIPTION: RAD - Cystography - 09/14/2018 11:47 am CLINICAL HISTORY: STENT REMOVAL COMPARISON: Urethrocystogrphy Retrograde dated 09/01/2018 FINDINGS: Fluoroscopic imaging of the pelvis was performed as part of a stent removal procedure. Det ails of the procedure are not available. No films were obtained. Total fluoro time: 46 seconds.
[2018-09-14] MEDS ORDERED: TRAMADOL HCL 50 MG TAB ONE (13:18)
== END 2018-09-14 13:50 | disposition home or self-care (01) ==
LOC: OR 09:24
PROVIDERS: ATTEND Urology
PROC: 0T768DZ Dilation of Right Ureter with Intraluminal Device, Via Natural or Artificial Opening Endoscopic (ICD-10-PCS; 2018-09-14)
PROC: 0TC68ZZ Extirpation of Matter from Right Ureter, Via Natural or Artificial Opening Endoscopic (ICD-10-PCS; principal; 2018-09-14 10:45)
DX: N20.2 Calculus of kidney with calculus of ureter (principal); Q62.39 Other obstructive defects of renal pelvis and ureter; Z83.3 Family history of diabetes mellitus
CPT/HCPCS: 36415; 51600; 71046; 74430; 80048; 81003; 81015; 82360; 85025; 85610; 85730; 87086; 87088; 93005; J1580; J2250; J2405; J3010; Q9967

== ENCOUNTER 2018-12-14 12:00 | Day surgery (SDC) | payer OTHER ==
[2018-12-14 12:00] LABS: Absolute Lymphocytes (CBC) 1.2 K/uL (0.7-4.9); Absolute Monocytes 0.4 K/uL (0.1-1.3); Absolute Neutrophil 3.9 K/uL (1.8-8.0); Basophils % 0.8 % (0-1.3); Eosinophils % 1.8 % (0-4.4); Hematocrit 43.3 % (39.6-49.0); Lymphocytes % 21.6 % (15.3-44.8); MPV 12.3 fL (7.6-11.3); Monocytes % 7.7 % (3.3-12.3); RBC Red Blood Cell Count 4.98 M/uL (4.33-5.43); Urine Appearance CLEAR; Urine Bilirubin NEGATIVE (NEG); Urine Blood TRACE (NEG); Urine Color YELLOW; Urine Glucose NEGATIVE (NEG); Urine Microscopic Reflex ORDER UMIC; Urine Protein NEGATIVE (NEG); Urine Specific Gravity <=1.005 (1.005-1.030); Urine Urobilinogen 0.2 mg/dL (0.2-1.0)
--- NOTE | 2018-12-14 12:05 | RAD REPORT ---
EXAM DESCRIPTION: RAD - Chest Pa And Lat (2 Views) - 12/14/2018 12:00 pm CLINICAL HISTORY: preop Chest pain. COMPARISON: Abdomen 1 View (KUB) dated 12/13/2018; Abdomen 1 View (KUB) dated 09/20/2018; Chest Pa An d Lat (2 Views) dated 09/13/2018; Abdomen 1 View (KUB) dated 09/13/2018 FINDINGS: The lungs are clear. The heart is normal in size. No displaced fractures. IMPRESSION: No acute or concerning finding suspected.
[2018-12-14 12:08] LABS: Urine Bacteria <20 /HPF (NONE SEEN); Urine Culture Reflex Order NOT NEEDED
[2018-12-14 12:12] LABS: Protime INR 0.97
[2018-12-14 12:14] LABS: Phosphorus 3.2 mg/dL (2.5-4.9); Potassium 3.9 mmol/L (3.5-5.1)
--- NOTE | 2018-12-14 12:25 | EKG ---
Test Date: 2018-12-14 Test Time: 11:39:51 Exercise Physiology Professor: EMMANUELLE MEASUREMENT RESULTS: Intervals: Rate: 76 CT: 162 QRSD: 98 QT: 368 QTc: 414 [place]: P: 22 CT: 162 QRS: 24 T: 17 INTERPRETIVE STATEMENTS: Normal sinus rhythm with sinus arrhythmia Normal ECG Compared to ECG 09/13/2018 13:36:51 Left ventricular hypertrophy no longer present Electronically Signed On 12-14-18 12:25:24 MERCHANDISE FLOW TEAM MEMBER by Medhat Stout
[2018-12-14 12:31] LABS: Blood Morphology Comment NOT SEEN (NOT SEEN); Platelet Estimate ADEQ; Urine White Blood Cell Casts OK
[2018-12-14] MEDS ORDERED: Ringers Lactate 1,000 ML IV ONE (12:34)
[2018-12-14] MEDS ORDERED: GENTAMICIN 100 MG/100 ML BAG 100 ML IV ONE (12:34)
[2018-12-14] MEDS ORDERED: FENTANYL CITR 100 MCG/2 ML ONE ×2 (14:01→15:13)
[2018-12-14] MEDS ORDERED: PROPOFOL 200 MG/20 ML VIAL IV ONE (14:02)
[2018-12-14] MEDS ORDERED: ONDANSETRON 4 MG/2 ML VIAL ONE (14:03)
[2018-12-14] MEDS ORDERED: LIDOCAINE 1% MPF 2 ML AMPULE ONE (14:03)
[2018-12-14] MEDS ORDERED: MIDAZOLAM HCL 2 MG/2 ML INJ ONE (14:03)
[2018-12-14] MEDS ORDERED: Mastisol Adhesive Liq ONE (14:30)
[2018-12-14] MEDS: MORPHINE 4 MG/ML SYR ONE ×2 (15:30→15:36)
[2018-12-14] MEDS ORDERED: HYDROCODONE/APAP 7.5/325 MG TAB ONE (16:27)
[2018-12-14] MEDS ORDERED: OXYBUTYNIN CHLORIDE 5 MG TAB ONE (17:10)
== END 2018-12-14 17:22 | disposition home or self-care (01) ==
LOC: OR 12:00
PROVIDERS: ATTEND Urology
PROC: 0TF4XZZ Fragmentation in Left Kidney Pelvis, External Approach (ICD-10-PCS; principal; 2018-12-14 13:15)
DX: N20.0 Calculus of kidney (principal); Q62.39 Other obstructive defects of renal pelvis and ureter; Z83.3 Family history of diabetes mellitus
CPT/HCPCS: 36415; 50590; 71046; 80048; 81003; 81015; 84100; 84550; 85025; 85610; 85730; 87086; 87088; 93005; J1580; J2001; J2250; J2405; J2704; J3010; Q9967

== ENCOUNTER 2021-01-23 08:51 | Emergency (ER) | payer OTHER ==
--- NOTE | 2021-01-23 10:03 | RAD REPORT ---
EXAM DESCRIPTION: US - Abdomen Exam Limited - 01/23/2021 9:53 am CLINICAL HISTORY: Abdominal pain. COMPARISON: None. FINDINGS: The gallbladder wall is not thickened. A gallstone is not seen. Several small polyps. Lar gest measures 4 millimeters The biliary tree is normal caliber. Increased hepatic echotexture consistent with fatty infiltration IMPRESSION: Several gallbladder polyps. Largest measures 4 millimeters. Follow-up ultrasound in 1 ye ar recommended to assess stability
[2021-01-23 10:09] LABS: Absolute Lymphocytes (CBC) 0.9 K/uL (0.7-4.9); Basophils % 1.2 % (0-1.3); Hematocrit 40.3 % (39.6-49.0); MPV 12.4 fL (7.6-11.3); RBC Red Blood Cell Count 4.59 M/uL (4.33-5.43)
[2021-01-23] MEDS ORDERED: FAMOTIDINE 20 MG/2 ML VIAL IV ONE (10:21)
[2021-01-23] MEDS ORDERED: MAGNES/ALUMIN/SIMET 30ML UCUP ONE (10:21)
[2021-01-23] MEDS ORDERED: LIDOCAINE VISCOUS 2% SOLN 15 ML UDC ONE (10:21)
[2021-01-23 10:28] LABS: ALT/SGPT 30 U/L (12-78); AST/SGOT 18 U/L (15-37); Alkaline Phosphatase 66 U/L (45-117); BUN Blood Urea Nitrogen 14 mg/dL (7-18); Bicarbonate 26 mmol/L (21-32); Bilirubin Direct 0.2 mg/dL (0-0.2); Bilirubin Total 0.4 mg/dL (0.2-1.0); Glucose Level 92 mg/dL (74-106); Lipase 291 U/L (73-393); Protein, Total 7.2 g/dL (6.4-8.2); Sodium Level 141 mmol/L (136-145)
[2021-01-23 10:54] LABS: Blood Morphology Comment NOT SEEN (NOT SEEN); Platelet Estimate ADEQ; Platelets, Giant P; White Blood Cell Scan OK (OK)
--- NOTE | 2021-01-23 11:05 | EDPHYS ---
Physician Documentation [facility] Name: Timbo Lara Jr Age: 50 yrs Sex: Male : 1970 Arrival Date: 01/23/2021 Time: 08:53 Bed 7 Private MD: Shelia Dominguez H ED Physician Luis Carlos Pollard HPI: 01/23 09:42 This 50 yrs old Male presents to ER via Ambulatory with complaints of rn Abdominal Pain. 09:42 The patient presents with abdominal pain in the epigastric area. Onset: The rn symptoms/episode began/occurred 1 month(s) ago. The symptoms do not radiate. Associated signs and symptoms: Pertinent negatives: nausea and vomiting, blood in stools, chest pain, constipation, diarrhea, fever. The symptoms are described as achy. Modifying factors: The symptoms are alleviated by nothing, the symptoms are aggravated by food. Severity of pain: At its worst the pain was moderate in the emergency department the pain has improved. The patient has experienced similar episodes in the past. The patient has not recently seen a physician. Reports 1 month of upper abd pain, was intermittent, now constant for 2 days, no fever/vomiting/dark stool/diarrhea. Reports similar symptoms in past, told acid reflux related, has not taken any antacids. No hx of pancreatitis, does not drink, no previous gallbladder issues. . Historical: - Allergies: 09:23 No Known Allergies; iw - Home Meds: 09:23 fenofibric acid Oral once daily [Active]; iw - PMHx: 09:23 Hyperlipidemia; iw - Immunization history:: Adult Immunizations up to date. - Social history:: Smoking status: Patient denies any tobacco usage or history of. - Family history:: not pertinent. - Hospitalizations: : No recent hospitalization is reported. ROS: 09:42 Constitutional: Negative for fever, chills, and weight loss, Eyes: Negative for injury, rn pain, redness, and discharge, Cardiovascular: Negative for chest pain, palpitations, and edema, Respiratory: Negative for shortness of breath, cough, wheezing, and pleuritic chest pain, Abdomen/GI: Negative for nausea, vomiting, diarrhea, and constipation, MS/Extremity: Negative for injury and deformity, Skin: Negative for injury, rash, and discoloration, Neuro: Negative for headache, numbness, tingling, and seizure. Exam: 09:42 Constitutional: This is a well developed, well nourished patient who is awake, alert, rn and in no acute distress. Head/Face: Normocephalic, atraumatic. Cardiovascular: Regular rate and rhythm. No pulse deficits. Respiratory: No increased work of breathing, no retractions or nasal flaring. Abdomen/GI: soft, mild epigastric tenderness, no rebound, neg farley Skin: Warm, dry MS/ Extremity: Pulses equal, no cyanosis. Neuro: Awake and alert, GCS 15 10:21 ECG was reviewed by the Attending Physician. rn Vital Signs: 09:18 BP 140 / 93; Pulse 82; Resp 16 S; Temp 97.9; Pulse Ox 100% on R/A; Weight 82.55 kg; iw Height 5 ft. 10 in. (177.80 cm); Pain 8/10; 09:18 Body Mass Index 26.11 (82.55 kg, 177.80 cm) iw MDM: 09:12 Patient medically screened. rn 11:03 Differential diagnosis: cholecystitis, Cholelithiasis, gastritis, gastroesophageal rn reflux disease, non-specific abd pain, pancreatitis. Data reviewed: vital signs, nurses notes, lab test result(s), radiologic studies, ultrasound, and as a result, I will discharge patient. Counseling: I had a detailed discussion with the patient and/or guardian regarding: the historical points, exam findings, and any diagnostic results supporting the discharge/admit diagnosis, lab results, radiology results, the need for outpatient follow up, to return to the emergency department if symptoms worsen or persist or if there are any questions or concerns that arise at home. Response to treatment: the patient's symptoms have mildly improved after treatment, and as a result, I will discharge patient. Special discussion: Based on the patient's Hx, exam, and Dx evaluation, there is no indication for emergent surgery or inpatient Tx. It is understood by the patient/guardian that if the Sx's persist or worsen they need to return immediately for re-evaluation. I discussed with the patient/guardian in detail that at this point there is no indication for admission to the hospital. It is understood, however, that if the symptoms persist or worsen the patient needs to return immediately for re-evaluation. Based on the history and exam findings, there is no indication for further emergent testing or inpatient evaluation. I discussed with the patient/guardian the need to see the merchandise adjustment clerk for further evaluation of the symptoms. 11:05 ED course: NOtified of gallbladder polyps, and need for f/u.. rn 01/23 09:27 Order name: Basic Metabolic Panel; Complete Time: 11:03 rn 01/23 09:27 Order name: CBC with Diff; Complete Time: 11:03 rn 01/23 09:27 Order name: Hepatic Function; Complete Time: 11: rn 01/23 09:27 Order name: Lipase; Complete Time: 11: rn 01/23 09:27 Order name: US Abdomen Limited; Complete Time: 10:08 rn 01/23 10:12 Order name: CBC Smear Scan; Complete Time: 11: EDMS 01/23 09:27 Order name: IV Saline Lock; Complete Time: 10: rn 01/23 09:27 Order name: Labs collected and sent; Complete Time: 10: rn 01/23 09:27 Order name: EKG; Complete Time: 09: rn 01/23 09:27 Order name: EKG - Nurse/Tech; Complete Time: 10:16 rn EC:21 Rate is 67 beats/min. Rhythm is regular. QRS Ellis is Normal. VT interval is normal. QRS rn interval is normal. QT interval is normal. No Q waves. T waves are Normal. No ST changes noted. Clinical impression: Normal ECG. Interpreted by me. Reviewed by me. Administered Medications: 10:08 Drug: GI Cocktail without - (Maalox Suspension 30 ml, Lidocaine Liquid 2 % 15 iw ml) Route: PO; 10:30 Follow up: Response: No adverse reaction iw 10:08 Drug: Pepcid 20 mg Route: IVP; Site: right antecubital; iw 10:30 Follow up: Response: No adverse reaction iw Disposition: 01/23/21 11:04 Discharged to Home. Impression: Gastritis, unspecified, without bleeding. - Condition is Stable. - Discharge Instructions: Gastritis, Adult. - Prescriptions for Protonix 40 mg Oral Tablet - take 1 tablet by ORAL route once daily; 30 tablet. - Work release form, Medication Reconciliation Form, Thank You Letter, Antibiotic Education, Prescription Opioid Use form. - Follow up: Private Physician; When: As needed; Reason: Recheck today's complaints, Re-evaluation by your physician. - Problem is new. - Symptoms have improved. Signatures: Dispatcher [employer] Lisa Roche RN RN iw Nieto, Roman, MD MD internet network specialist: (The following items were deleted from the chart) 11:25 11:04 01/23/2021 11:04 Discharged to Home. Impression: Gastritis, unspecified, without iw bleeding. Condition is Stable. Forms are Medication Reconciliation Form, Thank You Letter, Antibiotic Education, Prescription Opioid Use. Follow up: Private Physician; When: As needed; Reason: Recheck today's complaints, Re-evaluation by your physician. Problem is new. Symptoms have improved. rn
--- NOTE | 2021-01-23 11:05 | ER ---
Nurse's Notes [facility] Name: Timbo Lara Jr Age: 50 yrs Sex: Male : 1970 Arrival Date: 01/23/2021 Time: 08:53 Bed 7 Private MD: Shelia Dominguez H Diagnosis: Gastritis, unspecified, without bleeding Presentation: 01/23 09:18 Chief complaint: Patient states: epigastric pain X 1.5 months has been intermittent but iw constant over the last 2 days , denies n/v, pain is worse after eating, gets some relief after passing gas or having a BM. Coronavirus screen: At this time, the client does not indicate any symptoms associated with coronavirus-19. Ebola Screen: Patient negative for fever greater than or equal to 101.5 degrees Fahrenheit, and additional compatible Ebola Virus Disease symptoms Patient denies exposure to infectious person. Patient denies travel to an Ebola-affected area in the 21 days before illness onset. No symptoms or risks identified at this time. Initial Sepsis Screen: Does the patient meet any 2 criteria? No. Patient's initial sepsis screen is negative. Does the patient have a suspected source of infection? No. Patient's initial sepsis screen is negative. Risk Assessment: Do you want to hurt yourself or someone else? Patient reports no desire to harm self or others. Onset of symptoms was November 2020. 09:18 Method Of Arrival: Ambulatory iw 09:18 Acuity: DOMINIC 3 iw Historical: - Allergies: 09:23 No Known Allergies; iw - Home Meds: 09:23 fenofibric acid Oral once daily [Active]; iw - PMHx: 09:23 Hyperlipidemia; iw - Immunization history:: Adult Immunizations up to date. - Social history:: Smoking status: Patient denies any tobacco usage or history of. - Family history:: not pertinent. - Hospitalizations: : No recent hospitalization is reported. Screenin:59 Abuse screen: Denies threats or abuse. Denies injuries from another. Nutritional iw screening: No deficits noted. Tuberculosis screening: No symptoms or risk factors identified. Fall Risk IV access (20 points). Ambulatory Aid-. Assessment: 09:59 General: Appears in no apparent distress. Behavior is calm, cooperative. Pain: iw Complains of pain in epigastric area. Neuro: Level of Consciousness is awake, alert, obeys commands, Oriented to person, place, time, situation, Moves all extremities. Cardiovascular: Patient's skin is warm and dry. Respiratory: Respiratory effort is even, unlabored, Respiratory pattern is regular, symmetrical. GI: Abdomen is flat, non-distended, Bowel sounds present X 4 quads. Abd is soft and non tender X 4 quads. Derm: Skin is intact, is healthy with good turgor. Musculoskeletal: Range of motion: intact in all extremities. 10:42 Reassessment: Patient appears in no apparent distress at this time. Patient and/or iw family updated on plan of care and expected duration. Pain level reassessed. Patient is alert, oriented x 3, equal unlabored respirations, skin warm/dry/pink. Vital Signs: 09:18 BP 140 / 93; Pulse 82; Resp 16 S; Temp 97.9; Pulse Ox 100% on R/A; Weight 82.55 kg; iw Height 5 ft. 10 in. (177.80 cm); Pain 8/10; 09:18 Body Mass Index 26.11 (82.55 kg, 177.80 cm) iw ED Course: 08:53 Patient arrived in ED. ag5 08:58 Shelia Dominguez DO is Private Physician. ag5 09:12 Lisa Seay, RN is Primary Nurse. iw 09:12 Luis Carlos Pollard MD is Attending Physician. rn 09:22 Triage completed. iw 09:24 Arm band placed on. iw 09:54 US Abdomen Limited In Process Unspecified. EDMS 09:57 Initial lab(s) drawn, by me, sent to lab. Inserted saline lock: 20 gauge in right iw antecubital area, using aseptic technique. Blood collected. 09:59 Patient has correct armband on for positive identification. iw 11:21 No provider procedures requiring assistance completed. IV discontinued, intact, iw bleeding controlled, No redness/swelling at site. Pressure dressing applied. Administered Medications: 10:08 Drug: GI Cocktail without - (Maalox Suspension 30 ml, Lidocaine Liquid 2 % 15 iw ml) Route: PO; 10:30 Follow up: Response: No adverse reaction iw 10:08 Drug: Pepcid 20 mg Route: IVP; Site: right antecubital; iw 10:30 Follow up: Response: No adverse reaction iw Outcome: 11:04 Discharge ordered by . rn 11:24 Discharged to home ambulatory. iw 11:24 Condition: good 11:24 Discharge instructions given to patient, Instructed on discharge instructions, follow up and referral plans. medication usage, Demonstrated understanding of instructions, follow-up care, medications, Prescriptions given X 1. 11:25 Patient left the ED. iw Signatures: Dispatcher [employer] Lisa Roche RN RN iw Nieto, Roman, MD MD rn Gaskin, Ajare ag5
[2021-01-23 11:33] VITALS: BP 140/93; TEMP 97.9; O2SAT 100
--- NOTE | 2021-01-24 05:39 | EKG ---
Test Date: 2021-01-23 Test Time: 10:10:13 Digital Program Manager: GRACIE MEASUREMENT RESULTS: Intervals: Rate: 67 VA: 166 QRSD: 92 QT: 370 QTc: 390 [place]: P: 32 VA: 166 QRS: 44 T: 22 INTERPRETIVE STATEMENTS: Normal sinus rhythm Normal ECG Compared to ECG 04/07/2019 12:28:44 No significant changes Electronically Signed On 01-24-21 05:35:45 [employer] by Medhat Stout
== END 2021-01-23 11:25 | disposition home or self-care (01) ==
LOC: ER 08:51
DX: K29.70 Gastritis, unspecified, without bleeding (principal); E78.5 Hyperlipidemia, unspecified
CPT/HCPCS: 36415; 76705; 80048; 80076; 83690; 85025; 93005; 96374; 99284